=== PATIENT | male | born 1960 | race Caucasian/White ===

== ENCOUNTER 2018-11-12 06:59 | Inpatient (IN) | payer OTHER ==
--- NOTE | 2018-11-11 16:32 | GHP ---
[f rep st] PREOP HISTORY AND PHYSICAL Angela Daigle is the physician promotions assistant who sees him. DISCHARGE DIAGNOSIS: Prostate cancer. HISTORY: This 58-year-old gentleman who had a prostate biopsy done 06/24/2014 with a PSA of 6.47. The Juli score 6 cancer. There was 1 positive core number total score was over 6. At that time, he has been classified as a stage T1c, and he had a 44 g prostate. Repeat biopsy in 2015 showed atypia with a prostate volume of 47 g and at the present time, his PSA value has gradually risen so as of 11/08/2017, PSA went to 9.56. He had an MRI of the prostate in March 2018 that was a . Prostate volume by ultrasound in the office was 56 g as of October 12, 2018. At the present time, after undergoing assessment, discussion of options and treatment, he has elected to undergo a radical prostatectomy. He is admitted for the above procedure. PAST HISTORY: Has been some mild erectile dysfunction, hypertension, prostate cancer. PAST SURGICAL HISTORY: Inguinal hernia, prostate biopsy. MEDICATION: List includes: Lisinopril, vitamin D. ALLERGIES: None. FAMILY HISTORY: Heart disease, hypertension, and diabetes. SOCIAL HISTORY: Mild smoking. Mild alcohol consumption. REVIEW OF SYSTEMS: Negative cardiac, respiratory, GI and endocrine. PHYSICAL EXAMINATION: VITAL SIGNS: Stable. CHEST: Clear. HEART: Regular rate and rhythm. ABDOMEN: Normal. No organomegaly, rebound, or guarding. LOWER EXTREMITIES: Normal. Prostate was mildly enlarged with no obvious nodules. On the transrectal ultrasound of the prostate, he had a 56.3 g prostate with no suggestion of tumor going beyond the prostate. He had a hypoechoic lesion in the right anterolateral prostate and at the right side of the prostate appeared that he had significant involvement of the hypoechoic areas. The right seminal vesicle appeared to be mildly dilated. At the present time, he is admitted for the above procedure. Indications, complications associated with the procedure and expectations have been discussed. Written verbal consent was obtained. He is admitted for the above procedure. /[id number]/MODL MTDD
[~2018-11-12 06:59] MED LIST: LIDOCAINE 1% 2 ML INJ ID PRN; LR 1,000 ML IV ONE; ceFAZolin 2 GM/DEXTROSE 100 ML IV ONE
[2018-11-12] MEDS ORDERED: ACETAMINOPHEN 500 MG TAB PO ONE (07:00)
[2018-11-12] MEDS: GABAPENTIN 300 MG CAP PO SCH ×4 (07:15→21:00)
--- NOTE | 2018-11-12 07:41 | PDHPUP ---
History & Physical Update H&P update statement: This history and physical update is based on an assessment of the patient which was completed after admission or registration (within 24 hours), but prior to the surgery/procedure. H&P update: H&P reviewed & patient examined, no change in patient's condition since H&P completed
[2018-11-12] MEDS ORDERED: MIDAZOLAM 2 MG/2 ML VIAL IVP ONE (08:00)
[2018-11-12] MEDS ORDERED: SCOPOLAMINE HYDROBROMIDE 1 MG/3 DAYS PATCH TD SCH (08:00)
--- NOTE | 2018-11-12 08:00 | PDANEPAE ---
ANE Past Medical History - Cardiovascular History Hx Hypertension: Yes Hx Arrhythmias: No Hx Chest Pain: No Hx Coronary Artery / Peripheral Vascular Disease: No Hx CHF / Valvular Disease: No Hx Palpitations: No - Pulmonary History Hx COPD: No Hx Asthma/Reactive Airway Disease: No Hx Recent Upper Respiratory Infection: No Hx Oxygen in Use at Home: No Hx Sleep Apnea: No Sleep Apnea Screening Result - Last Documented: Positive - Neurologic History Hx Cerebrovascular Accident: No Hx Seizures: No Hx Dementia: No - Endocrine History Hx Diabetes: No - Renal History Hx Renal Disorders: No - Liver History Hx Hepatic Disorders: No - Neurological & Psychiatric Hx Hx Neurological and Psychiatric Disorders: No - Cancer History Hx Cancer: No - Congenital Disorder History Hx Congenital Disorders: No - GI History Hx Gastrointestinal Disorders: No - Other Health History Other Health History: NONE - Chronic Pain History Chronic Pain: No - Surgical History Prior Surgeries: NONE IN LAST 5 YRS. VASECTOMY 15YRS AGO. INGUINAL HERNIA RIGHT ANE Review of Systems Review of Systems: - Exercise capacity METS (RN): 4 METS ANE Patient History - Allergies Allergies/Adverse Reactions: No Known Allergies Allergy (Unverified 11/02/18 15:28) - Home Medications Home Medications: Lisinopril 11/02/18 [Last Taken Unknown] - NPO status NPO Since - Liquids (Date): 11/12/18 NPO Since - Liquids (Time): 05:15 NPO Since - Solids (Date): 11/11/18 NPO Since - Solids (Time): 20:30 - Smoking Hx Smoking Status: Former smoker - Family Anes Hx Family Hx Anesthesia Complications: NONE ANE Labs/Vital Signs - Vital Signs Blood Pressure: 136/78 Heart Rate: 73 Respiratory Rate: 18 O2 Sat (%): 98 Height: 180.34 cm Weight: 78.018 kg ANE Physical Exam - Airway Neck exam: FROM Mallampati Score: Class 1 Mouth exam: normal dental/mouth exam - Pulmonary Pulmonary: no respiratory distress - Cardiovascular Cardiovascular: regular rate and rhythym - ASA Status ASA Status: I ANE Anesthesia Plan Anesthesia Plan: general endotracheal anesthesia
[2018-11-12] MEDS ORDERED: fentaNYL 100 MCG/2 ML INJ ONE (08:06)
[2018-11-12] MEDS ORDERED: KETAMINE 200 MG/20 ML VIAL ONE (08:07)
[2018-11-12] MEDS ORDERED: morphINE PF 5 MG/10 ML INJ ONE (08:07)
[2018-11-12] MEDS ORDERED: PROPOFOL/EMULSION 500 MG/50 ML BOTTLE IV ONE ×5 (08:07→10:59)
[2018-11-12] MEDS ORDERED: LIDOCAINE 2% 100 MG/5 ML SYR ONE (08:08)
[2018-11-12] MEDS ORDERED: ONDANSETRON 4 MG/2 ML VIAL ONE (08:08)
[2018-11-12] MEDS ORDERED: ROCURONIUM 100 MG/10 ML VIAL ONE (08:08)
[2018-11-12] MEDS ORDERED: METOCLOPRAMIDE 10 MG/2 ML VIAL ONE (08:08)
[2018-11-12] MEDS ORDERED: DEXAMETHASONE 4 MG/ML VIAL ONE ×2 (08:08)
[2018-11-12] MEDS ORDERED: MAGNESIUM SULFATE 1 GM/2 ML VIAL ONE (08:09)
[2018-11-12] MEDS ORDERED: MIDAZOLAM 2 MG/2 ML VIAL ONE (08:13)
[2018-11-12] MEDS ORDERED: BUPIVACAINE 0.5% 30 ML SDV ONE (09:02)
[2018-11-12] MEDS ORDERED: ONDANSETRON 4 MG/2 ML VIAL IVP PRN ×4 (09:20→12:10)
[2018-11-12] MEDS ORDERED: fentaNYL 100 MCG/2 ML INJ IVP PRN (09:20)
[2018-11-12] MEDS ORDERED: MEPERIDINE 25 MG/0.5 ML AMP IVP PRN (09:20)
[2018-11-12] MEDS ORDERED: NALOXONE HCL 0.4 MG/ML INJ IVP PRN ×3 (09:20→12:10)
[2018-11-12] MEDS ORDERED: PROMETHAZINE HCL 25 MG/ML INJ IVP PRN (09:20)
[2018-11-12] MEDS ORDERED: ALBUTEROL 3 ML DEYVIAL IH PRN (09:20)
[2018-11-12] MEDS ORDERED: SURGIFLO MATRIX KIT WITH THROMBIN 8 ML TP ONE (09:50)
[2018-11-12] MEDS ORDERED: THROMBIN(HUM PLAS)/FIBRINOG/CA 5 ML VIAL TP ONE (09:50)
[2018-11-12] MEDS ORDERED: SUGAMMADEX SODIUM 200 MG/2 ML VIAL IVP ONE (11:18)
[2018-11-12] MEDS ORDERED: ZOLPIDEM TARTRATE 5 MG TAB PO PRN (12:10)
[2018-11-12] MEDS ORDERED: diphenhydrAMINE 25 MG CAP PO PRN (12:10)
[2018-11-12] MEDS ORDERED: ONDANSETRON DISINTEGRATING 4 MG TAB PO PRN (12:10)
[2018-11-12] MEDS ORDERED: HYDROmorphONE/DILAUDID 6 MG/30 ML PCA IV PRN (12:10)
--- NOTE | 2018-11-12 12:10 | POSTOPPROG ---
Post Op Note Date of Operation: 11/12/18 (dictated) Surgeon: Ifeanyi Esquivel Field Service Supervisor: Andrei Anesthesiologist: Elsy Anesthesia: GET(General Endotracheal) Pre-op Diagnosis: prostate cancer Procedure: RA-RRP and PLND Inf/Abcess present in the surg proc area at time of surgery?: No EBL: Minimal Drains: Zack Thomas, Other (gonzalez) Specimen(s): sent
[2018-11-12] MEDS ORDERED: D5W 1/2 NS W/ 20 KCl/L 1,000 ML IV SCH (12:15)
--- NOTE | 2018-11-12 12:25 | GOP ---
[f rep st] OPERATIVE REPORT DATE OF OPERATION: 11/12/2018 SURGEON: Ifeanyi Esquivel MD CHARTER REPRESENTATIVE: Garima Forbes CFA. ANESTHESIA: General anesthesia. ANESTHESIOLOGIST: Yevgeniy Chin MD. PREOPERATIVE DIAGNOSIS: Prostate cancer. POSTOPERATIVE DIAGNOSIS: Prostate cancer. PROCEDURE PERFORMED: Robotic-assisted radical prostatectomy and bilateral pelvic lymphadenectomy. FINDINGS: SPECIMENS: Lymph nodes and prostate with seminal vesicles. ESTIMATED BLOOD LOSS: 40 mL. DESCRIPTION OF PROCEDURE: Underwent general anesthesia, was prepped and draped in normal sterile fas hion. After appropriate time-out, the da Petrona XI unit was used, so 4 robotic 8 mm ports were placed , one the camera port above the umbilicus, and then two 8 mm ports on the right side, one 8 mm port o n the left, then a 12 mm or assistant port on the left. Inspection of the intraabdominal contents revea led no significant pathology, and then at that point, the colon was brought out of the pelvis. I amanda ntified each vas deferens and dissected those down and the peritoneum over the bladder and the rectal sulcus and dissected out the ampulla, vas deferens, seminal vesicles. Hemostasis was prov ided with Hem-o-loks and electrocautery, and then freed the rectum off the total aspect of the truck dispatcher ior part of the prostate. Then dropped the bladder down by taking down the obliterated umbilical art eries and the urachus, and hemostasis was noted and identified the endopelvic fascia on the right and left sides. That was incised. I identified the puboprostatic ligaments, took them down, and the de ep dorsal vein was ligated with 2-0 suture Vicryl of a M-stitch technique, and then defatted the pros scott and identified the bladder neck. Went through that sharply through the anterior urethra and the n identified the posterior bladder neck and urethra, dissected that out, and was able to bring the am gunnar, vas deferens, seminal vesicles anterior to the bladder neck. The right vascular pedicle was m anaged with Hem-o-loks to provide hemostasis. Same thing on the left side. Then at that point, I at tempted to preserve the neurovascular fibers on the right side. Then, the apex of the prostate was t ransected, tried to make sure that there appeared to be no gross pathology at that dissection. Then, the specimen was removed out of the operative site and the anastomosis performed with a 4-0 Quill urbina ture. Then it was tested and noted to be watertight after bridge with the Sanchez catheter and 20 cc b alloon inflated. At that point, the right and left pelvic lymphadenectomies were performed using the same dissection m argins of the mid aspect of the external iliac vein up to the bifurcation. The obturator nerve was i dentified in the depth. Hem-o-loks were used to provide lymph stasis and hemostasis, and the specime n sent separately. Then at that point, surgical glue was used to enforce the anastomosis. It was ir rigated again, noted to be watertight, and then the specimen had been placed in the bag. Undocked th e robot. We did let the pressure down to confirm there was no bleeding prior to undocking the robot. Then the SARAH drain was brought out through the 8 mm left-sided port. Fascial closure device used to close the or assistant port, and made an incision to open up the camera port so I could extract the pro state intact, and then at that point, the fascia was approximated with an 0 Vicryl, subcutaneous tiss ue hemostatic, and 4-0 Monocryl was used to close the skin edges with an intradermal stitch. He tolerated the procedure well. Complications none. Specimens as noted. He will be admitted for p ostoperative care. I will discuss the issues with his . COMPLICATIONS: None. /[id number]/MODL
--- NOTE | 2018-11-12 12:50 | PDMN ---
Medical Necessity [place] [facility] [place], radical 1 day OP: RA-RRP and RLND-- INPT only -AUTH# [id number] APPROVED FOR CPT CODE 67118 TO BE DONE INPATIENT.
[2018-11-12] MEDS: HYDROCODONE/APAP 5/325 TAB PO PRN ×3 (14:24→22:31)
--- NOTE | 2018-11-12 15:41 | POSTANESTH ---
Post Anesthetic Evaluation Cardiovascular Status: Similar to Pre-Op Cond Respiratory Status: Similar to Pre-op Cond. Level of Consciousness/Mental Status: Alert and Oriented Pain Control: Adequate, Prn Tx Ordered Nausea/Vomiting Control: Adequate, Prn Tx Ordered Complications Possibly Related to Anesthesia: None Noted (brief episode of severe bradycardia or asystole after Sugamadex administration. This spontaneously converted to sinus rhythm after 10-15 seconds without treatment.)
[2018-11-12] MEDS: ACETAMINOPHEN 500 MG TAB PO SCH ×2 (15:51→22:00)
[2018-11-12] MEDS ORDERED: CALCIUM CARBONATE 500 MG CHEWABLE TAB PO PRN ×2 (21:48→22:30)
[2018-11-13] MEDS: HYDROCODONE/APAP 5/325 TAB PO PRN ×5 (02:49→23:45)
[2018-11-13 04:50] LABS: PLATELET COUNT 204 10^3/uL (150-400)
[2018-11-13] MEDS: GABAPENTIN 300 MG CAP PO SCH ×2 (06:50→20:55)
[2018-11-13] MEDS: ACETAMINOPHEN 500 MG TAB PO SCH ×2 (06:50→14:26)
[2018-11-13] MEDS ORDERED: NS 500 ML IV ONE (07:34)
--- NOTE | 2018-11-13 10:37 | SOAPPROG ---
SOAP Progress Note Assessment/Plan: Assessment: Prostate cancer Acute POD #1 , doing well Vasovagal episode Acute Hospitalist and Dr. Chin assessed and stable Plan: SARAH output for creat, cont post op care 11/13/18 10:35 Subjective: doing well, vasovagal event discussed Objective: Vital Signs Temp Pulse Resp BP Pulse Ox 36.7 C 67 20 109/70 94 11/13/18 08:24 11/13/18 08:24 11/13/18 08:24 11/13/18 08:24 11/13/18 08:24 Laboratory Results 11/13/18 04:40 11/13/18 04:40 11/12/18 11/13/18 11/14/18 05:59 05:59 05:59 Intake Total 4150 Output Total 2039 Balance 2109 Physical Exam - Physical Exam General Appearance: alert Neck: supple Cardiac/Chest: regular rate, rhythm Abdomen: soft Back: No CVA tenderness Extremities: No calf tenderness, No Lorrie's sign ICD10 Worksheet Patient Problems: Problems Problem Status Onset Prostate cancer Acute Vasovagal episode Acute - ICD10 Problem Qualifiers (1) Prostate cancer (2) Vasovagal episode
--- NOTE | 2018-11-13 11:51 | CPEKG ---
Test Reason : OPEN Blood Pressure : / mmHG Vent. Rate : 050 BPM Atrial Rate : 050 BPM P-R Int : 179 ms QRS Dur : 098 ms QT Int : 413 ms P-R-T Axes : 082 035 034 degrees QTc Int : 377 ms Sinus rhythm Abnormal R-wave progression, early transition Minimal ST elevation, inferior leads Confirmed by Kwadwo Hernandez ([id number]) on 11/13/2018 11:50:40 AM Referred By: Ifeanyi Esquivel Confirmed By:Kwadwo Hernandez
[2018-11-13] MEDS: NS 1,000 ML IV SCH (12:52)
--- NOTE | 2018-11-13 14:14 | ECHO ---
[email or web address] [address] [address] Main: [phone] Fax: Transthoracic Echocardiogram Name: CAMMIE SALAZAR MR#: [id number] Study Date: 11/13/2018 Study Time: 11:46 AM Date of : 1960 Age: 58 year(s) Height: 170.2 cm (67 in.) Weight: 78.02 kg (172 lb.) BSA: 1.9 m2 Gender: Male Examination: Echo Indication: Asystole post procedure Image Quality: Contrast: Requested by: Johnnie Hercules BP: 109 mmHg/70 mmHg Heart Rate: Rhythm: Normal sinus rhythm Indication: Asystole post procedure Procedure Staff Cytopathology Technologist: Edy Mahmood RDCS Reading Physician: Hesham Caba MD Requesting Provider: Conclusions: Normal size left ventricle. No LV hypertrophy. Normal global systolic LV function. EF is 64 %. No regional wall motion abnormality. Normal diastolic LV function. Normal RV function. The left atrium is normal in size. The right atrium is normal in size. No pericardial effusion. Measurements: Chambers Valvular Assessment AV/MV Valvular Assessment TV/PV Normal Normal Normal Name Value Range Name Value Range Name Value Range Ao Zenobia (MM): 3.2 cm (2.2 cm-3.7 AV Vmax: 1.14 m/s (1 m/s-1.7 PV Vmax: 0.83 m/s (0.6 m/s-0.9 cm) m/s) m/s) IVSd (2D): 0.8 cm (0.6 cm-1.1 AV maxP mmHg ( - ) PV PGmax: 3 mmHg ( - ) cm) AV meanP mmHg ( - ) LVDd (2D): 3.4 cm (4.2 cm-5.9 LVOT Vmax: 1.17 m/s (0.7 m/s-1.1 cm) m/s) LVDs (2D): 2.2 cm (2.1 cm-4 TANGELA (Vmax): 3.2 cm2 ( - ) cm) TANGELA (VTI): 3.0 cm ( - ) LVPWd (2D): 0.9 cm (0.6 cm-1 MV E Vmax: 0.84 m/s ( - ) cm) MV A Vmax: 0.62 m/s ( - ) LVOTd 2.0 cm 2.0 cm mm MV E/A: 1.35 ( - ) LVEF (2D): 64 (>=54 %) Continued Measurements: Chambers Valvular Assessment AV/MV Patient: CAMMIE SALAZAR Study Date: 11/13/2018 Page 1 of 2 11:46 AM Name Value Name Value LADs Lon.2 cm MV E/E' Septal: 5.10 LA Area: 15.2 cm2 MV E/E' Lateral: 7.60 LA Volume: 47 ml LA Volume Index: 24.7 ml/m2 TAPSE: 1.5 cm Findings: Left Ventricle: Normal size left ventricle. No LV hypertrophy. Normal global systolic LV function. EF is 64 %. No regional wall motion abnormality. Normal diastolic LV function. Right Ventricle: Normal size right ventricle. Normal RV function. Left Atrium: The left atrium is normal in size. Right Atrium: The right atrium is normal in size. Mitral Valve: The mitral valve is normal in appearance and function. There is no mitral valve regurgitation. Aortic Valve: The aortic valve is tri-leaflet and functions normally. There is no aortic valve regurgitation. No aortic valve stenosis is present. Tricuspid Valve: The tricuspid valve is normal in appearance and function. There is no tricuspid valve regurgitation. Pulmonic Valve: The pulmonic valve is normal in appearance and function. There is no pulmonic regurgitation seen. Aorta: The aorta is normal. Pericardium: No pericardial effusion. (No Signature Object) Patient: CAMMIE SALAZAR Study Date: 11/13/2018 Page 2 of 2 11:46 AM [id number]
--- NOTE | 2018-11-13 16:00 | ASMTCMCOM ---
CM Note CM Note Notes: Patient here for scheduled prostatectomy. CM received call from [employer], initially they did not see the patient had pre-approval. CM spoke with Cecilia, they state they have authorization for the surgery and one day stay. They asked for updates to be sent to [phone] if additional days are required. CM to follow. D/C Plan: Home independent. Date Signed: 11/13/2018 03:59 PM Electronically Signed By:Romy Joseph
--- NOTE | 2018-11-13 16:33 | PDHOSCONS ---
History and Physical - Chief Complaint medical management - History of Present Illness This is a 58 yo male admitted by Urology for Radical Prostatectomy. While in the Surgical suite he received a dose of Sugammadex and was noted to be in Asystole for 10-15 seconds. CRP was initiated but prior to any additional meds provided he was noted to be out of asystole and back into a normal sinus rhythm. Post operatively he was sent to recovery and did well and was kept overnight and did well. This morning, however, he is noted to have bradycardia in the 50's and soft BP. He has had good urine output. He denies any cp or sob. He does not have known CAD, HLD, or DM. He does not have a family hx of early Cardiac disease but his mother did have a CABG in her 60's. He does have well controlled HTN and is on Lisinopril and is also an occasional tobacco smoker. He denies leg swelling, palpitations, or sob EKG this morning is read as ST elevations in the inferior leads, but on my review I do not appreciate this A troponin has not been checked Labs this morning are non revealing PMHx: HTN ED Prostate Ca Vitamin D deficiency PSHx: radical prostatectomy SocHx: occasional tobacco, occasional ETOH FmHx: per above History Information - Allergies/Home Medication List Allergies/Adverse Reactions: No Known Allergies Allergy (Verified 11/12/18 14:21) Home Medications: Lisinopril [Zestril 20 mg (*)] 20 mg PO HS 11/02/18 [Last Taken 11/11/18] I have personally reviewed and updated: medical history, social history - Social History Smoking Status: Former smoker Review of Systems Review of Systems: ROS: 10pt was reviewed & negative except for what was stated in HPI & below Physical Exam Physical Exam: Temp Pulse Resp BP Pulse Ox 36.9 C 73 20 112/65 96 11/13/18 16:00 11/13/18 16:00 11/13/18 16:00 11/13/18 16:00 11/13/18 16:00 O2 (L/minute) 6 Constitutional: no apparent distress Eyes: PERRL, EOMI Ears, Nose, Mouth, Throat: moist mucous membranes, hearing normal Cardiovascular: regular rate and rhythym, No JVD, No edema Respiratory: no respiratory distress, no rales or rhonchi, clear to auscultation Gastrointestinal: normoactive bowel sounds Skin: warm Neurologic: AAOx3 Psychiatric: interacting appropriately, not anxious, not encephalopathic Lymph, Heme, Immunologic: No petechiae Lab Data & Imaging Review 11/13/18 04:40 11/13/18 11:40 WBC 11.07 10^3/uL (3.80-9.50) H 11/13/18 04:40 RBC 4.36 10^6/uL (4.40-6.38) L 11/13/18 04:40 Hgb 13.5 g/dL (13.7-17.5) L 11/13/18 04:40 Hct 40.4 % (40.0-51.0) 11/13/18 04:40 MCV 92.7 fL (81.5-99.8) 11/13/18 04:40 MCH 31.0 pg (27.9-34.1) 11/13/18 04:40 MCHC 33.4 g/dL (32.4-36.7) 11/13/18 04:40 RDW 12.6 % (11.5-15.2) 11/13/18 04:40 Plt Count 204 10^3/uL (150-400) 11/13/18 04:40 MPV 9.1 fL (8.7-11.7) 11/13/18 04:40 Neut % (Auto) 82.6 % (39.3-74.2) H 11/13/18 04:40 Lymph % (Auto) 8.6 % (15.0-45.0) L 11/13/18 04:40 [place] % (Auto) 8.3 % (4.5-13.0) 11/13/18 04:40 Eos % (Auto) 0.1 % (0.6-7.6) L 11/13/18 04:40 Baso % (Auto) 0.2 % (0.3-1.7) L 11/13/18 04:40 Nucleat RBC Rel Count 0.0 % (0.0-0.2) 11/13/18 04:40 Absolute Neuts (auto) 9.15 10^3/uL (1.70-6.50) H 11/13/18 04:40 Absolute Lymphs (auto) 0.95 10^3/uL (1.00-3.00) L 11/13/18 04:40 Absolute Monos (auto) 0.92 10^3/uL (0.30-0.80) H 11/13/18 04:40 Absolute Eos (auto) 0.01 10^3/uL (0.03-0.40) L 11/13/18 04:40 Absolute Basos (auto) 0.02 10^3/uL (0.02-0.10) 11/13/18 04:40 Absolute Nucleated RBC 0.00 10^3/uL (0-0.01) 11/13/18 04:40 Immature Gran % 0.2 % (0.0-1.1) 11/13/18 04:40 Immature Gran # 0.02 10^3/uL (0.00-0.10) 11/13/18 04:40 Sodium 132 mEq/L (135-145) L 11/13/18 11:40 Potassium 4.8 mEq/L (3.5-5.2) 11/13/18 11:40 Chloride 106 mEq/L (97-110) 11/13/18 11:40 Carbon Dioxide 23 mEq/l (22-31) 11/13/18 11:40 Anion Gap 3 mEq/L (6-14) L 11/13/18 11:40 BUN 23 mg/dL (7-23) 11/13/18 11:40 Creatinine 1.2 mg/dL (0.7-1.3) 11/13/18 11:40 Estimated GFR > 60 11/13/18 11:40 Glucose 123 mg/dL (70-100) H 11/13/18 11:40 Calcium 8.7 mg/dL (8.5-10.4) 11/13/18 11:40 Magnesium 2.4 mg/dL (1.6-2.3) H 11/13/18 11:40 Troponin I < 0.012 ng/mL (0.000-0.034) 11/13/18 11:40 Peritoneal Creatinine 43.1 mg/dL 11/13/18 11:40 Assessment & Plan Assessment: #s/p Radical Prostatectomy #Asystole following administration of Sugamadex #Bradycardia #Mild Hypotension with hx of HTN #abnormal EKG with reports inferior st elevation, ?ACS Plan: Stat trop stat TTE stat EKG NPO for now More reccs pending w/u total critical care time is 40 mins
[2018-11-14] MEDS: ACETAMINOPHEN 500 MG TAB PO SCH ×3 (00:49→13:09)
[2018-11-14] MEDS: HYDROCODONE/APAP 5/325 TAB PO PRN ×2 (04:30→13:10)
[2018-11-14 05:14] LABS: PLATELET COUNT 168 10^3/uL (150-400)
--- NOTE | 2018-11-14 10:10 | SOAPPROG ---
SOAP Progress Note Assessment/Plan: Assessment: Prostate cancer Acute POD #2 , doing well yet urine leak in process of evaluation, well drained and no pt complaints Urine leakage Acute POD #2, outlined consideration of source of leak (anastomosis, bladder or ureter due to imaging pre op of prostate and mild ureteral dilation at time of surgery. If bladder or anastomosis cont present drainage, if from ureter consider IR placement of neph tube and antegrade stent if possible. Doubt transection of ureter yet could be possible, most likely ureteral injury if present most likely ureterotomy or clip placement Vasovagal episode Acute Resolved Plan: SARAH output for creat, CT cystogram, CT urogram, consider PCN if needed 11/14/18 10:07 Subjective: doing well and no complaints Objective: Vital Signs Temp Pulse Resp BP Pulse Ox 36.6 C 67 16 127/79 H 94 11/14/18 08:58 11/14/18 08:58 11/14/18 08:58 11/14/18 08:58 11/14/18 08:58 Laboratory Results 11/14/18 04:36 11/14/18 04:36 11/13/18 11/14/18 11/15/18 05:59 05:59 05:59 Intake Total 4150 2593 Output Total 2040 3840 Balance 2110 -1247 Physical Exam - Physical Exam General Appearance: WD/WN Respiratory: No respiratory distress Cardiac/Chest: regular rate, rhythm Abdomen: soft, other (normal incisional healing), No guarding, No rebound Back: No CVA tenderness Extremities: No calf tenderness, No Lorrie's sign Neuro/Psych: alert, oriented x 3 ICD10 Worksheet Patient Problems: Problems Problem Status Onset Leakage of urine from ureter Acute Prostate cancer Acute Vasovagal episode Acute - ICD10 Problem Qualifiers (1) Prostate cancer (2) Vasovagal episode (3) Leakage of urine from ureter
[2018-11-14] MEDS: GABAPENTIN 300 MG CAP PO SCH (10:25)
[2018-11-14] MEDS ORDERED: IOPAMIDOL (ISOVUE-300) 100 ML BTL ONE (10:46)
[2018-11-14] MEDS: NS 1,000 ML IV SCH (14:13)
--- NOTE | 2018-11-14 15:21 | HOSPPROG ---
Hospitalist Progress Note Assessment/Plan: 58 yo M with hx of prostate cancer s/p radical prostatectomy with jones operative asystole and now suspected urinary leak #s/p Radical Prostatectomy # urinary leak: by pelvic CT appears to be at the bladder urethral anastamotic site, urology to manage, may require IR stent #Asystole following administration of Sugamadex--have been monitoring on tele, no recurrent issues, echo unremarkable #Bradycardia: asymptomatic and in post op period, resolved #Mild Hypotension with hx of HTN #abnormal EKG: with minimal, non diagnostic ST elevations with normal echo and trops negative x 2 # IP status Patient new to my care. Old records reviewed and summarized as above. Care plan reviewed with DR. Esquivel. Subjective: no significant overnight events, urine output into SARAH Objective: Vital Signs Temp Pulse Resp BP Pulse Ox 36.8 C 61 16 121/70 H 95 11/14/18 12:05 11/14/18 12:05 11/14/18 12:05 11/14/18 12:05 11/14/18 12:05 Laboratory Results 11/14/18 04:36 11/14/18 04:36 11/13/18 11/14/18 11/15/18 05:59 05:59 05:59 Intake Total 4150 2593 Output Total 2040 3840 1400 Balance 2110 -1247 -1400 Constitutional: no apparent distress Eyes: PERRL, EOMI Ears, Nose, Mouth, Throat: moist mucous membranes, hearing normal Cardiovascular: regular rate and rhythym, No JVD, No edema Respiratory: no respiratory distress, no rales or rhonchi, clear to auscultation Gastrointestinal: normoactive bowel sounds Skin: warm Neurologic: AAOx3 Psychiatric: interacting appropriately, not anxious, not encephalopathic Lymph, Heme, Immunologic: No petechiae ICD10 Worksheet Patient Problems: Problems Problem Status Onset Leakage of urine from ureter Acute Prostate cancer Acute Vasovagal episode Acute
[2018-11-14 15:24] VITALS: BP 117/64
[2018-11-14] MEDS ORDERED: KETOROLAC 30 MG/1 ML SDV IVP ONE (18:00)
[2018-11-15] MEDS ORDERED: PATCH REMOVAL 1 EA PATCH TD SCH (08:01)
--- NOTE | 2018-11-15 11:29 | CPEKG ---
Test Reason : OPEN Blood Pressure : / mmHG Vent. Rate : 052 BPM Atrial Rate : 052 BPM P-R Int : 186 ms QRS Dur : 098 ms QT Int : 399 ms P-R-T Axes : 079 031 029 degrees QTc Int : 371 ms Sinus rhythm Confirmed by Kwadwo Hernandez ([id number]) on 11/15/2018 11:29:13 AM Referred By: Ifeanyi Esquivel Confirmed By:Kwadwo Hernandez
== END 2018-11-14 19:00 | disposition home or self-care (01) | DRG 708 ==
LOC: F1N 06:59
PROVIDERS: ADMIT Specialist; ATTEND Specialist
DX: C61 Malignant neoplasm of prostate (principal); I10 Essential (primary) hypertension; G47.30 Sleep apnea, unspecified; N40.0 Benign prostatic hyperplasia without lower urinary tract symptoms; N52.9 Male erectile dysfunction, unspecified
CPT/HCPCS: J0690; J1100; J1885; J2001; J2250; J2274; J2405; J2704; J2765; J3010; J3475; Q9967

== ENCOUNTER → 2018-11-18 | Outpatient (CLI) | payer OTHER | LOC: FIMAGING 10:54 | PROVIDERS: ATTEND Specialist | DX: R93.5 Abnormal findings on diagnostic imaging of other abdominal regions, including retroperitoneum (principal); I25.10 Atherosclerotic heart disease of native coronary artery without angina pectoris; Z90.79 Acquired absence of other genital organ(s) ==